=== PATIENT | male | born 1985 | race Caucasian/White ===

== ENCOUNTER 2017-01-03 18:45 | Emergency (ER) | payer MEDICAID ==
[~2017-01-03] VITALS: Wt 77.5 kg
[2017-01-03] MEDS ORDERED: IBUP-1542 PO (19:28)
[2017-01-03] MEDS ORDERED: CEPH-443 PO (19:28)
[2017-01-03] MEDS ORDERED: LIDOCAINE 1% (MDV) 20 ML INJ SC ONE ×2 (19:30)
[2017-01-03] MEDS ORDERED: DIPHTH/TET/ACEL PERTUSS (ADULT) 0.5 ML VIAL IM* ONE (19:30)
[2017-01-03] MEDS ORDERED: CEPHALEXIN 500 MG CAP PO ONE (19:30)
[2017-01-03] MEDS ORDERED: OXYCODONE/ACETAMINOPHEN (5/325) TAB PO ONE (19:30)
--- NOTE | 2017-01-03 20:19 | RADRPT ---
PROCEDURE: XR Finger. CLINICAL INDICATION: Trauma. Left third finger pain. TECHNIQUE: Three views. Frontal, lateral, and oblique. COMPARISON: None available FINDINGS: There is an acute fracture of the terminal tuft of the third distal phalanx with minimal displacemen t of the fracture fragments. There is soft tissue injury at this site indicating a compound fractur e. Portions of the soft tissues are absent. There is no other fracture and there is no dislocation. The soft tissues are otherwise normal. Articular surfaces are intact. There is no lytic or blastic lesion. There is no radiopaque foreign body. IMPRESSION: 1. Acute compound fracture of the terminal tuft of the third distal phalanx. 2. Otherwise unremarkable images of the left third finger. RPTAT: QQ .Vincenzo Deutsch MD, Date Time Electronically viewed and signed by .Vincenzo Deutsch MD, on 01/03/2017 20:18 .R/
--- NOTE | 2017-01-03 21:07 | ERD ---
ER Documentation Chief Complaint Date/Time DATE: 01/03/17 TIME: 20:46 Chief Complaint amputated fingertip, has tip in ice water HPI 31-year-old right-handed man presents with left middle fingertip amputation after he accidentally closed the door onto the tip of the finger. He placed the fingertip directly into a bag of ice about an hour prior to my evaluation. He denies paresis or paresthesias, no fevers or chills, no chest pain or shortness of breath. ROS All systems reviewed and are negative except as per history of present illness. Medications Home Meds Active Scripts Cephalexin* (Keflex*) 500 Mg Capsule, 500 MG PO TID for 5 Days, CAP Prov:LISSETTE EDMONDS MD 01/03/17 Ibuprofen* (Motrin*) 600 Mg Tab, 600 MG PO Q8 for PAIN AND/OR INFLAMMATION, #30 TAB Prov:LISSETTE EDMONDS MD 01/03/17 PMhx/Soc Medical and Surgical Hx: pt denies Medical Hx, pt denies Surgical Hx History of Surgery: No Anesthesia Reaction: No Hx Neurological Disorder: No Hx Respiratory Disorders: No Hx Cardiac Disorders: No Hx Psychiatric Problems: No Hx Miscellaneous Medical Probl: No Hx Alcohol Use: No Hx Substance Use: No Hx Tobacco Use: No Smoking Status: Never smoker FmHx Family History: No diabetes Physical Exam Vitals Vital Signs Date Time Temp Pulse Resp B/P Pulse Ox O2 Delivery O2 Flow Rate FiO2 01/03/17 19:12 98.0 55 24 150/87 100 Physical Exam GENERAL: Well-developed, well-nourished, well-hydrated, in no apparent distress , looks nontoxic in appearance HEENT: Moist mucous membranes, pink conjunctiva, no cervical spine tenderness or step-off deformities, no goiter, no jaundice or icterus, extraocular movements intact without pain. No submandibular induration, and no pharyngeal erythema NEURO: Alert and oriented 3, cranial nerves II through XII intact bilaterally, pupils equal round reactive to light, no focal deficits or facial asymmetry, sensation intact distally Strength 5/5 in upper and lower extremities bilaterally CARDIAC: Regular rate and rhythm, no murmurs rubs or gallops LUNGS: Clear bilaterally no wheezing crackles or stridor ABDOMEN: Soft nontender, no guarding, no rigidity, no rebound, no psoas sign no obturator sign. Normoactive bowel sounds SKIN: Warm and dry to touch, no abrasions, contusions, or hematomas, no lacerations, no ecchymosis, no target lesions, and without ulcers EXTREMITIES: Left middle fingertip is completely amputated from the middle of the fingernail, minimal bleeding, full range of motion at the left third digit MCP, PIP, DIP. Fingertip stump appears pink and is soaking wet. PSYCH: Normal affect without agitation or irritability Results 24 hrs Current Medications Medications (Trade) Dose Ordered Sig/Socrates Route PRN Reason Start Time Stop Time Status Last Admin Dose Admin Lidocaine (Xylocaine 1% (Mdv) 20 ml) 20 ml ONCE ONCE SC 01/03/17 19:30 01/03/17 19:31 UNV Lidocaine (Xylocaine 1% (Mdv) 20 ml) 20 ml ONCE ONCE SC 01/03/17 19:30 01/03/17 19:31 DC Oxycodone/ Acetaminophen (Percocet (5/ 325)) 1 tab ONCE ONCE PO 01/03/17 19:30 01/03/17 19:31 DC 01/03/17 19:50 Diphtheria/ Tetanus/Acell Pertussis (Adacel) 0.5 ml ONCE ONCE IM* 01/03/17 19:30 01/03/17 19:31 DC 01/03/17 19:49 Cephalexin (Keflex) 500 mg ONCE ONCE PO 01/03/17 19:30 01/03/17 19:31 DC 01/03/17 19:48 Procedures/MDM Procedure note: Nerve block: After hand was inspected, and cleansed with chlorhexidine I performed a finger nerve block to the third digit of the left hand. 4 mL of lidocaine 1% was used the base of the left middle finger anesthetic block was achieved a few minutes after. Fingertip was irrigated copiously with normal saline, and I applied 4 absorbable 3-0 sutures to approximate the fingertip stump to the remaining digit. The amputated portion was approximated well with good anatomic alignment, 4 absorbable sutures were used and then I applied Steri-Strips to secure the tip further. I did explain to the patient that approximating and connecting the finger tip was mainly to provide a biologic dressing to the remaining finger to help prevent infection and to give the best possible functional and cosmetic outcome. I explained that the amputated portion may not stick and will likely fall off. X-ray left middle Finger 2V Interpreted by me: Bones: Transverse distal tuft fracture of the third digit Joints: No dislocation Foreign body: None I administered Percocet one tablet by mouth, tetanus toxoid 0.5 mL intramuscular injection, and cephalexin 500 mg by mouth Patient feels much better at this time, and vital signs are normal, symptoms have improved. I did give strict instructions to return to the ED if symptoms continue or worsen, patient will otherwise follow-up with primary care physician. Patient understood instructions and agreed to plan. Patient to return in 2 days for wound check. Departure Diagnosis: Primary Impression: Traumatic amputation of finger Encounter type: initial encounter Qualified Code: S68.119A - Traumatic amputation of finger, initial encounter Condition: Good Patient Instructions: Finger Tip Amputation, Open Treatment Referrals: [facility] LISSETTE EDMONDS MD Jan 03, 2017 21:06
== END 2017-01-03 20:55 | disposition home or self-care (01) ==
LOC: E/R 18:45
DX: S68.113A Complete traumatic metacarpophalangeal amputation of left middle finger, initial encounter (principal); W23.0XXA Caught, crushed, jammed, or pinched between moving objects, initial encounter; Y92.9 Unspecified place or not applicable; Z23 Encounter for immunization
CPT/HCPCS: 12001; 73140; 90715; Z7610; 90471

== ENCOUNTER 2017-01-05 10:45 | Emergency (ER) | payer MEDICAID ==
[~2017-01-05] VITALS: Ht 165.1 cm; Wt 76.0 kg
[~2017-01-05 10:45] MED LIST: CEPH-443 PO; IBUP-1542 PO
[2017-01-05 10:52] VITALS: Ht 165.1 cm; Wt 76.0 kg
--- NOTE | 2017-01-05 15:42 | ERD ---
ER Documentation Chief Complaint Date/Time DATE: 01/05/17 TIME: 15:38 Chief Complaint LEFT MIDDLE FINGER LAC RECHECK HPI 31-year-old right-handed male with no significant past medical history presents to the ED for a laceration recheck of his left middle finger. States that he accidentally closed the door onto the tip of his finger. Denies any fever, chills, loss of sensation, loss of range of motion, paresthesias, chest pain or shortness of breath. States that he filled his prescription for Keflex and is taking it consistently. Reports ibuprofen is helping with his pain. ROS All systems reviewed and are negative except as per history of present illness. Medications Home Meds Active Scripts Cephalexin* (Keflex*) 500 Mg Capsule, 500 MG PO TID for 5 Days, CAP Prov:LISSETTE EDMONDS MD 01/03/17 Ibuprofen* (Motrin*) 600 Mg Tab, 600 MG PO Q8 for PAIN AND/OR INFLAMMATION, #30 TAB Prov:LISSETTE EDMONDS MD 01/03/17 Allergies Allergies: Coded Allergies: No Known Allergy (Unverified , 01/05/17) PMhx/Soc Medical and Surgical Hx: pt denies Medical Hx, pt denies Surgical Hx History of Surgery: No Anesthesia Reaction: No Hx Neurological Disorder: No Hx Respiratory Disorders: No Hx Cardiac Disorders: No Hx Psychiatric Problems: No Hx Miscellaneous Medical Probl: No Hx Alcohol Use: No Hx Substance Use: No Hx Tobacco Use: No Smoking Status: Never smoker Physical Exam Vitals Vital Signs Date Time Temp Pulse Resp B/P Pulse Ox O2 Delivery O2 Flow Rate FiO2 01/05/17 10:52 98.0 58 18 145/85 98 Physical Exam Const: [id number], well-nourished. In no acute distress. Head: Atraumatic, normocephalic Eyes: Normal Conjunctiva without injection ENT: Normal external ear, nose and mouth. Neck: Full range of motion. No meningismus. Resp: Clear to auscultation bilaterally. No wheezing, rhonchi, rales, or crackles. No accessory muscle use. No retractions. Cardio: Regular rate and rhythm, no murmurs Skin: No petechiae or rashes Back: No midline tenderness. No CVA tenderness. 2.5 cm laceration noted on the finger stump with lacerated finger nail with no signs of erythema, edema, bleeding, purulent discharge. Slight tenderness to palpation of the affected area. Full range of motion of the PIP, DIP, MCP joint. Ext: No cyanosis, or edema. Cap refill less than 2 seconds. Distal pulses intact bilaterally. Neur: Awake and alert. Normal gait and coordination. Muscle strength 5/5. Sensation intact bilaterally. Psych: Normal Mood and Affect Procedures/MDM This is a 31-year-old right-handed male presenting to the ED with a left middle finger amputation laceration recheck. Patient is afebrile and nontoxic- appearing. Patient has normal vital signs. 4 sutures are noted without any signs of diseases. No signs or evidence of sepsis, cellulitis, deep space infection. Patient does have a open fracture. I instructed patient to follow- up with the orthopedic physician for further care and treatment. Strictly instructed patient to complete the course of antibiotics. Patient's laceration was re-cleaned and redressed. Metal splint was placed. Splint Assessment: Neurovascularly intact pre and post splint placement with good fit. Patient's extremity symptoms have stabilized while they have been evaluated in the department and are appropriate for outpatient follow up. No evidence of dislocations, compartment syndrome, neurologic injury, vascular injury, open joint, open fracture, tendon laceration, septic arthritis, osteomyelitis, DVT, foreign body, or other emergent conditions. Discharge medications: Keflex, Ibuprofen Follow up with primary care physician in 1-2 days. Instructed patient to return to the ED sooner for any worsening symptoms. Patient's questions were answered. Patient understood and agreed with discharge plan. Patient discharged stable. Departure Diagnosis: Primary Impression: Encounter for re-check of laceration wound Condition: Stable Patient Instructions: Wound Care, Fracture, Finger (Open) Referrals: COMMUNITY CLINICS YOU HAVE RECEIVED A MEDICAL SCREENING EXAM AND THE RESULTS INDICATE THAT YOU DO NOT HAVE A CONDITION THAT REQUIRES URGENT TREATMENT IN THE EMERGENCY DEPARTMENT. FURTHER EVALUATION AND TREATMENT OF YOUR CONDITION CAN WAIT UNTIL YOU ARE SEEN IN YOUR DOCTORS OFFICE WITHIN THE NEXT 1-2 DAYS. IT IS YOUR RESPONSIBILITY TO MAKE AN APPOINTMENT FOR FOLOW-UP CARE. IF YOU HAVE A PRIMARY DOCTOR --you should call your primary doctor and schedule an appointment IF YOU DO NOT HAVE A PRIMARY DOCTOR YOU CAN CALL OUR PHYSICIAN REFERRAL HOTLINE AT IF YOU CAN NOT AFFORD TO SEE A PHYSICIAN YOU CAN CHOSE FROM THE FOLLOWING COMMUNITY CLINICS [facility] [address] [place] [facility] [address] [facility] [place] [facility] [address] [facility] [address] [facility] [address] [facility]. [facility] [address] [facility]. [facility] YOU HAVE RECEIVED A MEDICAL SCREENING EXAM AND THE RESULTS INDICATE THAT YOU DO NOT HAVE A CONDITION THAT REQUIRES URGENT TREATMENT IN THE EMERGENCY DEPARTMENT. FURTHER EVALUATION AND TREATMENT OF YOUR CONDITION CAN WAIT UNTIL YOU ARE SEEN IN YOUR DOCTORS OFFICE WITHIN THE NEXT 1-2 DAYS. IT IS YOUR RESPONSIBILITY TO MAKE AN APPOINTMENT FOR FOLOW-UP CARE. IF YOU HAVE A PRIMARY DOCTOR --you should call your primary doctor and schedule and appointment IF YOU DO NOT HAVE A PRIMARY DOCTOR YOU CAN CALL OUR PHYSICIAN REFERRAL HOTLINE AT . IF YOU CAN NOT AFFORD TO SEE A PHYSICIAN YOU CAN CHOSE FROM THE FOLLOWING [facility] INSTITUTIONS: [facility] [address] [place] [address] [facility] [address] [place] [address] [facility] [address] [place] [address] [facility] Urgent Care 7 a.m.- 11 p.m. Every Day of the Week NO APPOINTMENT OR AUTHORIZATION NEEDED [facility] Hours: Mon-Fri 9:00 AM - 5:00 PM Additional Instructions: Completar todos clau antibiticos. Seguimiento con mdico ortopdico maana para mayor cuidado de cantu fractura. Suturas es necesario retirar en 7 ross. Regrese a estas instalaciones si no se mejora heidi esperbamos o heidi le dijimos. MIRNA MCCRAY PA-C Jan 05, 2017 15:42
== END 2017-01-05 14:58 | disposition home or self-care (01) ==
LOC: FTE 10:45
DX: Z48.01 Encounter for change or removal of surgical wound dressing (principal)
CPT/HCPCS: 99281

== ENCOUNTER 2017-01-10 10:16 | Emergency (ER) | payer MEDICAID ==
[~2017-01-10] VITALS: Ht 167.6 cm; Wt 76.5 kg
[2017-01-10 10:23] VITALS: Ht 167.6 cm; Wt 76.5 kg
[2017-01-10] MEDS ORDERED: BAC30OI TOP (11:32)
--- NOTE | 2017-01-10 13:22 | ERD ---
DATE OF SERVICE: 01/10/2017 HISTORY OF PRESENT ILLNESS: The patient is a 31-year-old male coming in for a suture check of a lac eration sustained on the distal tip of his middle finger on the left side. The patient had sutures placed 1 week ago after he slammed finger in a door. He states that he has not had any pain. He tristan s normal sensation and movement. There has been no difficulty or excessive pain to the site. PAST MEDICAL HISTORY: Denies any other medical problems. ALLERGIES TO MEDICATIONS: DENIES. PAST SURGICAL HISTORY: Denies. HOSPITALIZATIONS: Denies. REVIEW OF SYSTEMS: A 12-point review of systems was done. Refer to HPI for positives, all other sy stems negative. PHYSICAL EXAMINATION VITAL SIGNS: Temperature is 97, pulse 72, blood pressure is 116/65, respiratory rate 20, O2 saturat ion 98% on room air. Pain intensity 3/10. GENERAL: The patient is well-appearing, well-nourished, in no acute distress. CHEST: Clear to auscultation bilaterally. There are no rales, wheezes or rhonchi. HEART: Regular rate and rhythm. No murmurs, clicks, rubs or gallops. No S3 or S4. EXTREMITIES: Equal pulses bilaterally. There is no peripheral clubbing, cyanosis or edema. No focal swelling or erythema. Full range of motion. Grossly neurovascularly intact. SKIN: There is a suture site noted on the distal tip of the middle finger. There is some pallor no marie to the skin that was reattached. The patient has normal flexion and extension. There was no pu rulence. No surrounding erythema. No fluctuance and no tenderness to palpation. DIAGNOSIS: Wound check. MEDICAL DECISION MAKING: I did not take sutures out, they are dissolvable sutures. I have concern that the distal tip of the finger skin will not regenerate as reattached, so I felt that it was safe r to keep the skin attached via sutures to help protect the healing skin underneath. I told patient that he likely will lose skin and new granulation tissue will fill in to cover the affected injury site. The patient understood and complied. EMERGENCY ROOM COURSE: The site was cleaned and bacitracin ointment and bandage was applied. DISCHARGE: The patient is discharged stable. The patient is told to return in 5 days so we could a dequately monitor the healing process of the finger. The patient was told if symptoms change or wor sen, to return sooner. All other questions answered at the time of discharge. Discharge summary gi yury at the time of departure. The patient understood and complied with plan. Dictated By: MONICA PUGH for PERTA LYN/DEQUAN Conf#: [id number] DID#: [id number]
== END 2017-01-10 11:59 | disposition home or self-care (01) ==
LOC: FTE 10:16
DX: Z48.01 Encounter for change or removal of surgical wound dressing (principal)
CPT/HCPCS: 99283

== ENCOUNTER 2017-01-15 11:43 | Emergency (ER) | payer MEDICAID ==
[~2017-01-15] VITALS: Ht 167.6 cm; Wt 77.0 kg
[~2017-01-15 11:43] MED LIST changes: +BAC30OI TOP
[2017-01-15 11:47] VITALS: Ht 167.6 cm; Wt 77.0 kg
--- NOTE | 2017-01-15 13:10 | ERD ---
ER Documentation Chief Complaint Date/Time DATE: 01/15/17 TIME: 13:06 Chief Complaint suture removal left 3rd finger; HPI This is a 31-year-old male presents to the ER for suture removal sutures to his left third digit. Patient was seen here after he cut the tip of his finger off. Patient has been taking his antibiotics. Patient denies any pain at this time. He does however state that he is unable to feel the tip of his finger. She does not have any fevers or chills. He has full range of motion of his finger. ROS 12 point review of systems was done, all negative except per HPI. Medications Home Meds Active Scripts Bacitracin* (Bacitracin Zinc Oint*) 28.35 Gm Oint, 1 APPLIC TOP DAILY, #1 TUB APPLI TO Prov:MELLY DAVIS PA-C 01/10/17 Cephalexin* (Keflex*) 500 Mg Capsule, 500 MG PO TID for 5 Days, CAP Prov:LISSETTE EDMONDS MD 01/03/17 Ibuprofen* (Motrin*) 600 Mg Tab, 600 MG PO Q8 for PAIN AND/OR INFLAMMATION, #30 TAB Prov:LISSETTE EDMONDS MD 01/03/17 Allergies Allergies: Coded Allergies: No Known Allergy (Unverified , 01/05/17) PMhx/Soc History of Surgery: No Anesthesia Reaction: No Hx Neurological Disorder: No Hx Respiratory Disorders: No Hx Cardiac Disorders: No Hx Psychiatric Problems: No Hx Miscellaneous Medical Probl: No Hx Alcohol Use: No Hx Substance Use: No Hx Tobacco Use: No Physical Exam Vitals Vital Signs Date Time Temp Pulse Resp B/P Pulse Ox O2 Delivery O2 Flow Rate FiO2 01/15/17 11:47 97.3 57 100 135/76 99 Physical Exam GENERAL: The patient is well developed and appropriate for usual state of health , in no apparent distress. HEENT: Atraumatic. CHEST: Clear to auscultation bilaterally. There are no rales, wheezes or rhonchi. HEART: Regular rate and rhythm. No murmurs, clicks, rubs or gallops. EXTREMITIES: Right third digit: there are [address] there is no discharge from the area, no wound dehiscence, no surrounding erythema. distal tip is black. NEURO: Alert and oriented. Procedures/MDM This is a 31-year-old male presents to the ER for suture removal. At this time I am not able to remove sutures as they are Vicryl and they will observe on their own. Stressed to patient that it was very important to him to go see a hand specialist in June of his finger was blocked. Considering the nature of his injury patient may not be able to keep his finger. I discussed his case with my supervising physician Dr. Goodman. He agrees with my medical decision making. Patient was given information to the hand clinic and was told to follow -up with me as possible. Patient is to return to ER sooner if symptoms worsen. My medical decision-making should with the patient he understands and agrees with plan. Departure Diagnosis: Primary Impression: Encounter for re-check of laceration wound Condition: Stable Patient Instructions: Laceration, Hand With Possible Nerve Injury (Sutures, Glue) Referrals: [facility] Additional Instructions: Specialist:Usted tiene nelsy condicin mdica que requiere que estrada a un especialista dentro de los prximos 1-2 ross.POR FAVOR,CON VINCENT SEGUIMIENTO DE PRIMARIA PHSICIAN refferal. SI USTED NO TIENE UN MDICO GENERAL Y / O USTED NO PUEDE PAGAR vikas a un mdico,los siguientes downs RECURSOS sido suministrado a usted. ES VINCENT RESPONSABILIDAD PARA SER VISTOS POR EL ESPECIALISTA: NECESITAS IR A VIKAS UN ESPECIALISTA DE LA SARA ALLAN Jan 15, 2017 13:10
== END 2017-01-15 12:44 | disposition home or self-care (01) ==
LOC: FTE 11:43
DX: Z48.01 Encounter for change or removal of surgical wound dressing (principal)
CPT/HCPCS: 99281